=== PATIENT | male | born 1945 | race Caucasian/White ===

== ENCOUNTER 2022-04-18 19:28 | Inpatient (IN) | payer OTHER ==
[2022-04-18 20:39] LABS: VENOUS BASE EXCESS 0.3 mmol/L (-2-2); VENOUS O2 SATURATION 49.1 % (70-80); VENOUS PCO2 48.1 mmHg (38-52); VENOUS PH 7.356 (7.310-7.410)
[2022-04-18 20:51] LABS: BASO % 0.7 % (0-2.0); EOS % 2.4 % (0-4.5); HEMATOCRIT 37.1 % (35.4-49); HEMOGLOBIN 12.2 GM/dL (11.7-16.9); LYMPH % 20.7 % (8-40); MCH 27.4 pg (25.7-33.7); MCHC 32.8 g/dl (32.0-35.9); MEAN CELL VOLUME 83.4 fl (80-96); NEUT % 64.2 % (42.8-82.8); PLATELET COUNT 250 10^3/uL (134-434); RBC 4.45 M/mm3 (4.00-5.60); RDW 16.2 % (11.9-15.9); WHITE BLOOD COUNT 7.7 K/mm3 (4.0-10.0)
[2022-04-18 21:02] LABS: INR 1.11 (0.83-1.09); PROTHROMBIN TIME (PATIENT) 12.9 SEC (9.7-13.0)
[2022-04-18 21:05] LABS: ACTIVATED PTT 29.8 SECONDS (25.2-36.5)
[2022-04-18 21:15] LABS: N-TERMINAL BNP 3320.3 pg/ml (5-450)
[2022-04-18] MEDS ORDERED: LACTATED RINGERS SOLUTION 1000 ML INFUS.BAG IV ONE (21:27)
[2022-04-18 21:38] LABS: BILIRUBIN,TOTAL 0.6 mg/dL (0.2-1); BLOOD UREA NITROGEN 16.5 mg/dL (7-18); CALCIUM 9.9 mg/dL (8.5-10.1); CREATININE 1.3 mg/dL (0.55-1.3); TOT PROT 6.1 g/dl (6.4-8.2)
[2022-04-18] MEDS ORDERED: ATORVASTATIN CA 80 MG TABLET (FP) PO ONE (21:55)
[2022-04-18] MEDS ORDERED: ASPIRIN 81 MG CHEWABLE TABLETS PO ONE (21:55)
[2022-04-18] MEDS ORDERED: ATORVASTATIN CA 80 MG TABLET (FP) ONE (22:04)
[2022-04-18] MEDS ORDERED: ASPIRIN 81 MG CHEWABLE TABLETS ONE (22:05)
[2022-04-19 00:47] LABS: PH,URINE 5.5 (5.0-8.0); URINE APPEARANCE CLEAR; URINE BILIRUBIN NEGATIVE (NEGATIVE); URINE COLOR YELLOW; URINE GLUCOSE (UA) NEGATIVE (NEGATIVE); URINE KETONE NEGATIVE (NEGATIVE); URINE LEUK ESTERASE NEGATIVE (NEGATIVE); URINE NITRITE NEGATIVE (NEGATIVE); URINE PROTEIN TRACE (NEGATIVE)
[2022-04-19 05:31] LABS: COCAINE, UR NEGATIVE (NEGATIVE); METHADONE, UR NEGATIVE (NEGATIVE); OPIATES, URI NEGATIVE (NEGATIVE); PHENCYCLIDINE,URINE NEGATIVE (NEGATIVE); URINE AMPHETAMINES NEGATIVE (NEGATIVE); URINE BARBITURATES NEGATIVE (NEGATIVE); URINE BENZODIAZEPINES NEGATIVE (NEGATIVE)
[2022-04-19 06:31] LABS: BASO % 0.9 % (0-2.0); HEMOGLOBIN 11.7 GM/dL (11.7-16.9); LYMPH % 24.3 % (8-40); MCH 27.1 pg (25.7-33.7); MCHC 32.6 g/dl (32.0-35.9); MEAN CELL VOLUME 83.2 fl (80-96); MEAN PLT VOLUME 9.4 fl (7.5-11.1); MONO % 11.7 % (3.8-10.2); NEUT % 61.1 % (42.8-82.8); PLATELET COUNT 225 10^3/uL (134-434); RBC 4.32 M/mm3 (4.00-5.60); RDW 16.3 % (11.9-15.9); WHITE BLOOD COUNT 6.9 K/mm3 (4.0-10.0)
[2022-04-19 06:52] LABS: CALCIUM 9.9 mg/dL (8.5-10.1)
[2022-04-19 06:53] LABS: BLOOD UREA NITROGEN 16.5 mg/dL (7-18); MAGNESIUM 1.9 mg/dL (1.8-2.4)
[2022-04-19 06:56] LABS: CREATININE 1.1 mg/dL (0.55-1.3)
[2022-04-19 06:57] LABS: BILIRUBIN,TOTAL 0.8 mg/dL (0.2-1); TOT PROT 5.7 g/dl (6.4-8.2)
[2022-04-19] MEDS ORDERED: ENOXAPARIN NA (PORCINE) 40 MG/0.4 ML DISP.SYRIN SQ ONE (10:07)
[2022-04-19] MEDS ORDERED: CLOPIDOGREL BISULFATE 75 MG TABLET (FP) ONE (10:07)
[2022-04-19] MEDS ORDERED: ASPIRIN COATED 81 MG TABLET.EC ONE (10:07)
[2022-04-19] MEDS: ENOXAPARIN NA (PORCINE) 40 MG/0.4 ML DISP.SYRIN SQ SCH (11:00)
[2022-04-19] MEDS: CLOPIDOGREL BISULFATE 75 MG TABLET (FP) PO SCH (12:00)
[2022-04-19] MEDS: ASPIRIN COATED 81 MG TABLET.EC PO SCH (12:00)
[2022-04-19] MEDS: CARVEDILOL 25 MG TABLET (FP) PO SCH (21:41)
[2022-04-19] MEDS ORDERED: ATORVASTATIN CA 40 MG TABLET (FP) PO SCH (22:00)
[2022-04-20 09:06] VITALS: RESP 20
[2022-04-20] MEDS: ENOXAPARIN NA (PORCINE) 40 MG/0.4 ML DISP.SYRIN SQ SCH (09:06)
[2022-04-20] MEDS: CARVEDILOL 25 MG TABLET (FP) PO SCH (09:06)
[2022-04-20] MEDS: CLOPIDOGREL BISULFATE 75 MG TABLET (FP) PO SCH (09:06)
[2022-04-20] MEDS: ASPIRIN COATED 81 MG TABLET.EC PO SCH (09:07)
[2022-04-20] MEDS ORDERED: LISINOPRIL 5 MG TABLET PO SCH (10:00)
[2022-04-20 13:25] VITALS: BMI 35.9
[2022-04-20] MEDS ORDERED: ISOSORBIDE MONONITRATE 30 MG TAB.SR.24H (FP) PO SCH (13:45)
[2022-04-20] MEDS ORDERED: hydrALAZINE HCL 50 MG TABLET (FP) PO SCH (13:45)
[2022-04-20] MEDS ORDERED: amLODIPine BESYLATE 5 MG TABLET (FP) PO SCH (13:45)
[2022-04-20 14:56] VITALS: BP 127/63; PULSE 64; TEMP 97.7
[2022-04-21] MEDS ORDERED: PANTOPRAZOLE 40 MG TABLET PO SCH (10:00)
== END 2022-04-20 16:14 | disposition home or self-care (01) | DRG 66 ==
LOC: JER 19:28 → JERBED 21:18 → J4W 04-19 17:20
PROVIDERS: ADMIT Internal Medicine; ATTEND Internal Medicine
DX: I63.9 Cerebral infarction, unspecified (principal); I25.10 Atherosclerotic heart disease of native coronary artery without angina pectoris; K21.9 Gastro-esophageal reflux disease without esophagitis; I69.320 Aphasia following cerebral infarction; E78.5 Hyperlipidemia, unspecified; E11.9 Type 2 diabetes mellitus without complications; I10 Essential (primary) hypertension; R29.703 NIHSS score 3
CPT/HCPCS: 0241U-QW; 36415; 70450-TC; 70496-TC; 70498-TC; 70551-TC; 71045-TC-FY; 80053; 80061; 80307; 81003; 82140; 82550; 82803; 82962; 83036; 83605; 83735; 83880; 84100; 84439; 84443; 84484; 85025; 85610; 85730; 86850; 86900; 86901; 87040; 87086; 93005; 93010; 93306-TC; 99291

== ENCOUNTER 2024-09-18 08:39 | Observation (INO) | payer OTHER ==
[2024-09-18 08:46] VITALS: BMI 39.2
[2024-09-18 10:18] LABS: MCHC 30.8 g/dl (32.3-36.5); MEAN CELL VOLUME 88.1 fl (79.0-92.2); MEAN PLT VOLUME 11.3 fl (9.4-12.4); RDW 14.7 % (12.2-16.6)
[2024-09-18 10:29] LABS: INR 1.17 (0.83-1.09); PROTHROMBIN TIME (PATIENT) 12.9 SEC (9.7-13.0)
[2024-09-18 10:32] LABS: ACTIVATED PTT 28.6 SECONDS (25.2-36.5)
[2024-09-18 10:37] LABS: CO2 26.0 mmol/L (21-32); GLUCOSE,RANDOM 115.0 mg/dL (74-106)
[2024-09-18 10:41] LABS: CREATININE 1.3 mg/dL (0.55-1.3); SGOT/AST 11.0 U/L (15-37)
[2024-09-18 10:42] LABS: SGPT/ALT 16.0 U/L (13-61); TOT PROT 6.1 g/dl (6.4-8.2)
[2024-09-18 10:43] LABS: ALK PHOS 108.0 U/L (45-117)
[2024-09-18 10:47] LABS: N-TERMINAL BNP 8634.3 pg/ml (5-450)
[2024-09-18] MEDS ORDERED: FUROSEMIDE 40 MG/4 ML INJECTABLE VIAL ONE ×2 (11:09→16:51)
[2024-09-18] MEDS: FUROSEMIDE 40 MG/4 ML INJECTABLE VIAL IVPUSH ONE (11:20)
[2024-09-18 13:55] LABS: BG HCT 36.0 % (35.4-49); VENOUS BASE EXCESS -3.5 mmol/L (-2-2); VENOUS O2 SATURATION 43.5 % (70-80); VENOUS PCO2 59.4 mmHg (38-52); VENOUS PH 7.237 (7.310-7.410)
[2024-09-18 14:02] LABS: URINE APPEARANCE CLEAR; URINE BILIRUBIN NEGATIVE (NEGATIVE); URINE COLOR YELLOW; URINE GLUCOSE (UA) NEGATIVE (NEGATIVE); URINE KETONE NEGATIVE (NEGATIVE); URINE LEUK ESTERASE NEGATIVE (NEGATIVE); URINE NITRITE NEGATIVE (NEGATIVE); URINE PROTEIN NEGATIVE (NEGATIVE); URINE UROBILINOGEN 0.2 mg/dL (0.2-1.0)
[2024-09-18] MEDS: FUROSEMIDE 40 MG/4 ML INJECTABLE VIAL IVPUSH SCH (16:52)
[2024-09-18 18:38] LABS: HIV INTERPRETATION NEGATIVE (NEGATIVE)
[2024-09-18 21:30] LABS: HCV DIAGNOSTIC IN-HOUSE W/RFLX NON-REACTIVE (NONREACTIVE)
[2024-09-18] MEDS: ATORVASTATIN CA 40 MG TABLET (FP) PO SCH (22:35)
[2024-09-19 07:22] LABS: ABSOLUTE IMMATURE GRANULOCYTES 0.05 x10^3/uL (0.0-0.031); BASOPHILS # 0.09 x10^3/uL (0.01-0.08); EOSINOPHIL % 0.8 % (0.8-7.0); EOSINOPHILS # 0.09 x10^3/uL (0.04-0.54); MCHC 30.4 g/dl (32.3-36.5); MEAN CELL VOLUME 90.3 fl (79.0-92.2); MEAN PLT VOLUME 11.4 fl (9.4-12.4); MONOCYTE # 0.84 x10^3/uL (0.30-0.82); MONOCYTE % 7.8 % (5.3-12.2); RDW 14.6 % (12.2-16.6)
[2024-09-19 07:49] LABS: CREATININE 1.5 mg/dL (0.55-1.3); GLUCOSE,RANDOM 80.0 mg/dL (74-106)
[2024-09-19 07:51] LABS: CO2 29.0 mmol/L (21-32); TOT PROT 6.6 g/dl (6.4-8.2)
[2024-09-19 07:52] LABS: ALK PHOS 121.0 U/L (45-117); SGOT/AST 16.0 U/L (15-37); SGPT/ALT 18.0 U/L (13-61)
[2024-09-19 08:01] LABS: N-TERMINAL BNP 5302.3 pg/ml (5-450)
[2024-09-19] MEDS: EZETIMIBE 10 MG TABLET (FP) PO SCH (09:41)
[2024-09-19] MEDS: PANTOPRAZOLE 40 MG TABLET PO SCH (09:41)
[2024-09-19] MEDS: LISINOPRIL 5 MG TABLET PO SCH (09:41)
[2024-09-19] MEDS: ASPIRIN 81 MG CHEWABLE TABLETS PO SCH (09:41)
[2024-09-19] MEDS: ENOXAPARIN NA (PORCINE) 40 MG/0.4 ML DISP.SYRIN SQ SCH (09:41)
[2024-09-19] MEDS: SERTRALINE HCL 50 MG TABLET (FP) PO SCH (09:41)
[2024-09-19] MEDS: POTASSIUM CHLORIDE TABS 20 MEQ TABLET.ER (FP) PO ONE (16:00)
[2024-09-19 17:01] LABS: CO2 27.0 mmol/L (21-32); GLUCOSE,RANDOM 135.0 mg/dL (74-106)
[2024-09-19 17:04] LABS: CREATININE 1.6 mg/dL (0.55-1.3)
[2024-09-19] MEDS: KCL 10 MEQ IVPB 10 MEQ/100 ML INFUS.BAG IVPB SCH (17:39)
[2024-09-19 18:18] VITALS: RESP 20
[2024-09-20 08:25] LABS: MCHC 30.3 g/dl (32.3-36.5); MEAN CELL VOLUME 90.1 fl (79.0-92.2); MEAN PLT VOLUME 11.1 fl (9.4-12.4); RDW 14.6 % (12.2-16.6)
[2024-09-20 08:45] LABS: CO2 30.0 mmol/L (21-32)
[2024-09-20 08:48] LABS: GLUCOSE,RANDOM 106.0 mg/dL (74-106)
[2024-09-20 08:49] LABS: CREATININE 1.3 mg/dL (0.55-1.3)
[2024-09-20] MEDS ORDERED: FUROSEMIDE 40 MG/4 ML INJECTABLE VIAL IVPUSH SCH (10:00)
[2024-09-20] MEDS ORDERED: CARVEDILOL 3.125 MG TABLET (FP) PO SCH (10:00)
[2024-09-20] MEDS: POTASSIUM CHLORIDE ORAL LIQUID 20 MEQ/15 ML PO ONE (11:16)
[2024-09-20] MEDS: CARVEDILOL 6.25 MG TABLET (FP) PO SCH (11:17)
[2024-09-20] MEDS: FUROSEMIDE 40 MG TABLET (FP) PO SCH (11:17)
[2024-09-20 19:18] VITALS: BP 136/95; PULSE 60; TEMP 97.7
== END 2024-09-20 19:30 | disposition home or self-care (01) ==
LOC: JER 08:39 → INTOOBSV 11:11 → UNDOADMOB 11:11 → JERBED 11:11 → J4W 18:22
PROVIDERS: ADMIT Student in an Organized Health Care Education/Training Program; ATTEND Student in an Organized Health Care Education/Training Program
PROC: 3E033GC Introduction of Other Therapeutic Substance into Peripheral Vein, Percutaneous Approach (ICD-10-PCS; principal; 2024-09-18)
DX: I13.0 Hypertensive heart and chronic kidney disease with heart failure and stage 1 through stage 4 chronic kidney disease, or unspecified chronic kidney disease (principal); I50.23 Acute on chronic systolic (congestive) heart failure; E78.5 Hyperlipidemia, unspecified; I49.3 Ventricular premature depolarization; I95.9 Hypotension, unspecified; R06.01 Orthopnea; I11.0 Hypertensive heart disease with heart failure; N18.9 Chronic kidney disease, unspecified; E11.22 Type 2 diabetes mellitus with diabetic chronic kidney disease; E66.01 Morbid (severe) obesity due to excess calories; Z86.73 Personal history of transient ischemic attack (TIA), and cerebral infarction without residual deficits
CPT/HCPCS: 36415; 71045-TC-FY; 80048; 80053; 81003; 82803; 83735; 83880; 83970; 84100; 84436; 84443; 84484; 85025; 85027; 85610; 85730; 86803; 86850; 86900; 86901; 87389; 87637-QW; 93005; 93010; 93306-TC; 94660; 94761; 96365; 96372; 96375; 97116-GP; 97161-GP; 99285-25; G0378